=== PATIENT | female | born 1990 | race Caucasian/White ===

== ENCOUNTER 2023-04-19 21:41 | Emergency (ER) | payer OTHER ==
[2023-04-19 21:56] VITALS: BP 151/95; PULSE 97; RESP 18; TEMP 98.4; BMI 35.2
[2023-04-19] MEDS ORDERED: IBUPROFEN 600 MG TABLET (FP) PO ONE ×2 (22:18→22:21)
[2023-04-19] MEDS ORDERED: METHOCARBAMOL 500 MG TABLET PO ONE (22:18)
[2023-04-19] MEDS ORDERED: METHOCARBAMOL 500 MG TABLET ONE (22:21)
== END 2023-04-19 23:00 | disposition home or self-care (01) ==
LOC: JER 21:41
DX: M62.838 Other muscle spasm (principal); M54.2 Cervicalgia; V49.50XA Passenger injured in collision with unspecified motor vehicles in traffic accident, initial encounter; Y93.I9 Activity, other involving external motion; Y92.410 Unspecified street and highway as the place of occurrence of the external cause
CPT/HCPCS: 99283-25